=== PATIENT | female | born 1970 | race Caucasian/White ===

== ENCOUNTER 2025-03-29 06:17 | Day surgery (SDC) | payer BC ==
[~2025-03-29 06:17] MED LIST: Sodium Chloride 0.9% 10 ML Syringe FLUSH PRN; Sodium Chloride 0.9% 10 ML Syringe FLUSH SCH
[2025-03-29] MEDS: Lactated Ringers 1,000 ML IV SCH (06:50)
[2025-03-29] MEDS ORDERED: propofoL 500 MG/50 ML 50 ML ONE (06:53)
== END 2025-03-29 08:30 | disposition home or self-care (01) ==
LOC: JD.SDS 06:17
PROVIDERS: ATTEND Surgery
DX: Z12.11 Encounter for screening for malignant neoplasm of colon (principal); K20.0 Eosinophilic esophagitis; I10 Essential (primary) hypertension; E66.9 Obesity, unspecified; Z68.43 Body mass index [BMI] 50.0-59.9, adult; Z79.899 Other long term (current) drug therapy
CPT/HCPCS: 43239; 45378; J2003; J2704; J7120; 00813